=== PATIENT | male | born 1965 | race Caucasian/White ===

== ENCOUNTER 2017-01-27 16:39 | Emergency (ER) | payer SELFPAY ==
[~2017-01-27] VITALS: Ht 172.7 cm; Wt 70.0 kg
[~2017-01-27 16:39] MED LIST: Z.0.NO CURRENT MEDS
[2017-01-27 16:43] VITALS: BP 129/65; PULSE 91; RESP 14; TEMP 98; O2SAT 99
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
[2017-01-27 17:24] LABS: AUTOMATED NEUTROPHIL # 4.2 TH/MM3 (1.8-7.7); BASOPHIL % 0.6 % (0.0-2.0); EOSINOPHIL # 0.4 TH/MM3 (0-0.4); EOSINOPHIL % 5.1 % (0.0-4.0); HEMATOCRIT 45.3 % (39.0-51.0); HEMO FLAGS DIFF FINAL; LYMPH % 30.1 % (9.0-44.0); LYMPHOCYTE # 2.3 TH/MM3 (1.0-4.8); MEAN CELL VOLUME 98.4 FL (80.0-100.0); MEAN CORPUSCULAR HEMOGLOBIN 34.3 PG (27.0-34.0); MEAN CORPUSCULAR HGB CONC 34.9 % (32.0-36.0); MONO % 9.3 % (0.0-8.0); NEUT % 54.9 % (16.0-70.0); PLATELET COUNT 219 TH/MM3 (150-450); RED CELL DISTRIBUTION WIDTH 14.5 % (11.6-17.2); WHITE BLOOD COUNT 7.7 TH/MM3 (4.0-11.0)
[2017-01-27 17:36] LABS: ALT (GPT) 81 U/L (12-78); ANION GAP 7 MEQ/L (5-15); AST (GOT) 129 U/L (15-37); BICARBONATE 27.6 MEQ/L (21.0-32.0); BLOOD UREA NITROGEN 18 MG/DL (7-18); CHLORIDE 103 MEQ/L (98-107); GLOMERULAR FILTRATION RATE 80 ML/MIN (>89); POTASSIUM 3.7 MEQ/L (3.5-5.1); SODIUM (NA) 138 MEQ/L (136-145)
[2017-01-27 17:39] LABS: ALKALINE PHOSPHATASE 79 U/L (45-117); TOTAL BILIRUBIN ADULT 0.3 MG/DL (0.2-1.0)
[2017-01-27 17:42] LABS: ACETAMINOPHEN LESS THAN 2.0 MCG/ML (10.0-30.0); ALCOHOL 268 MG/DL (0-5)
== END 2017-01-27 23:39 ==
LOC: NEPD 16:39 → NEPJ 23:39
DX: F31.9 Bipolar disorder, unspecified (principal); R45.851 Suicidal ideations; Z86.73 Personal history of transient ischemic attack (TIA), and cerebral infarction without residual deficits
CPT/HCPCS: 80053; 80307; 85025; 99284